=== PATIENT | female | born 1940 | race Caucasian/White ===

== ENCOUNTER 2023-07-14 18:13 | Emergency (ER) | payer OTHER, MEDICAID ==
[~2023-07-14] VITALS: Ht 157.5 cm; Wt 77.1 kg
[2023-07-14 18:25] VITALS: BP_SYST 143; PULSE 79; RESP 18; TEMP 98.3; O2SAT 98
[2023-07-14] MEDS ORDERED: ACETAMINOPHEN 325 MG TABLET PO ONE (19:15)
[2023-07-14] MEDS ORDERED: KETOROLAC TROMETHAMINE 30 MG VIAL IM ONE (20:30)
[2023-07-14] MEDS ORDERED: DICL20GE TP (21:00)
[2023-07-14] MEDS ORDERED: IBUP-1969 PO (21:00)
[2023-07-14 21:11] VITALS: BP_SYST 154; PULSE 89; RESP 20; TEMP 97.7; O2SAT 98
== END 2023-07-14 21:11 | disposition home or self-care (01) ==
LOC: SED 18:13
DX: S00.83XA Contusion of other part of head, initial encounter (principal); Z79.899 Other long term (current) drug therapy; W01.0XXA Fall on same level from slipping, tripping and stumbling without subsequent striking against object, initial encounter; Y93.89 Activity, other specified; Y92.89 Other specified places as the place of occurrence of the external cause; Y99.8 Other external cause status
CPT/HCPCS: 99285; 70450; 73110; 73502; 73564; 70486; 76376; 96372; J1885

== ENCOUNTER 2023-10-22 11:48 | Emergency (ER) | payer OTHER, MEDICAID ==
[~2023-10-22] VITALS: Ht 157.5 cm; Wt 76.2 kg
[~2023-10-22 11:48] MED LIST: DICL20GE TP; IBUP-1969 PO
[2023-10-22 12:38] VITALS: BP_SYST 148; PULSE 80; RESP 17; TEMP 97.8; O2SAT 97
[2023-10-22 14:43] LABS: BILIRUBIN,URINE NEGATIVE (NEGATIVE); COLOR,URINE YELLOW (YELLOW); GLUCOSE,URINE NEGATIVE (NEGATIVE); KETONES,URINE NEGATIVE (NEGATIVE); LEUKOCYTE ESTERASE ,URINE 2+ (NEGATIVE); NITRITE, URINE NEGATIVE (NEGATIVE); PROTEIN URINE 2+ (NEGATIVE); UROBILINOGEN,URINE 0.2 (0.2-1.0)
[2023-10-22 15:13] VITALS: BP_SYST 110
[2023-10-22 15:13] LABS: BLOOD, URINE TRACE (NEGATIVE)
[2023-10-22 15:14] LABS: CLARITY/URINE SLIGHTLY HAZY (CLEAR)
[2023-10-22 15:41] LABS: RBC,URINE 0-3 /HPF (0-3)
[2023-10-22 15:42] LABS: BACTERIA,URINE MODERATE /HPF (None Seen)
[2023-10-22] MEDS ORDERED: LORATADINE 10 MG TABLET PO ONE (18:15)
[2023-10-22] MEDS ORDERED: CEPH250C PO (18:16)
[2023-10-22] MEDS ORDERED: LORA10TA7 PO (18:18)
[2023-10-22 18:30] VITALS: PULSE 78; RESP 17; TEMP 98; O2SAT 97
== END 2023-10-22 18:30 | disposition home or self-care (01) ==
LOC: SED 11:48
DX: N39.0 Urinary tract infection, site not specified (principal); L30.9 Dermatitis, unspecified; L29.9 Pruritus, unspecified; R30.0 Dysuria; E11.9 Type 2 diabetes mellitus without complications; Z79.899 Other long term (current) drug therapy
CPT/HCPCS: 81000; 81001; 81015; 87086; 99283

== ENCOUNTER 2024-03-19 11:48 | Emergency (ER) | payer OTHER, MEDICAID ==
[~2024-03-19] VITALS: Ht 157.5 cm; Wt 74.8 kg
[~2024-03-19 11:48] MED LIST changes: +CEPH250C PO; +LORA10TA7 PO
[2024-03-19 11:51] VITALS: BP_SYST 126; PULSE 74; RESP 20; TEMP 97; O2SAT 98
[2024-03-19 12:49] LABS: BASOPHILS % (AUTO) 0.7 % (0.0-2.0); EOSINOPHILS # (AUTO) 0.4 K/uL (0.0-0.4); EOSINOPHILS % (AUTO) 5.7 % (0.0-4.0); HEMOGLOBIN 11.2 g/dL (12.0-16.0); LYMPHOCYTES # (AUTO) 1.7 K/uL (1.0-5.5); LYMPHOCYTES % (AUTO) 24.3 % (20.5-51.5); MEAN CORPUSCULAR HEMOGLOBIN 29 pg (27-31); MEAN CORPUSCULAR HGB CONC 34 % (32-36); MEAN CORPUSCULAR VOLUME 86 fL (79.0-98.0); MONOCYTES # (AUTO) 0.5 K/uL (0.0-1.0); MONOCYTES % (AUTO) 6.4 % (1.7-9.3); NEUTROPHILS # (AUTO) 4.4 K/uL (1.8-7.7); NEUTROPHILS % (AUTO) 62.9 % (40.0-70.0); PLATELET COUNT (AUTO) 156 K/uL (130-430); RED BLOOD CELL COUNT(AUTO) 3.84 MIL/uL (4.2-6.2); RED CELL DISTRIBUTION WIDTH 14.6 % (9.0-15.0); WHITE BLOOD COUNT (AUTO) 7.1 K/uL (4.8-10.8)
[2024-03-19 13:11] LABS: ALANINE AMINOTRANSFERASE 11 U/L (12-78); ALBUMIN 3.3 g/dL (3.4-4.8); ANION GAP 13 (5-15); ASPARTATE AMINOTRANSFERASE 12 U/L (10-37); CARBON DIOXIDE 22 mmol/L (23-29); CHLORIDE 107 mmol/L (98-107); CREATININE 1.41 mg/dL (0.55-1.30); GLUCOSE 187 mg/dL (74-106); POTASSIUM 4.8 mmol/L (3.5-5.1); SODIUM SERUM 142 mmol/L (136-145); TOTAL BILIRUBIN 0.5 mg/dL (0.0-1.0); TOTAL PROTEIN, SERUM 7.7 g/dL (6.4-8.3); UREA NITROGEN, BLOOD 41 mg/dL (8-21)
[2024-03-19] MEDS ORDERED: CEFU250T85 PO (13:49)
[2024-03-19] MEDS ORDERED: METH-776 PO (13:49)
[2024-03-19 14:18] VITALS: BP_SYST 126; PULSE 74; RESP 20; TEMP 97; O2SAT 98
== END 2024-03-19 14:16 | disposition home or self-care (01) ==
LOC: SED 11:48
DX: J18.9 Pneumonia, unspecified organism (principal); R07.89 Other chest pain; E11.9 Type 2 diabetes mellitus without complications
CPT/HCPCS: 36415; 71046; 80053; 84484; 85025; 85379; 93005; 99285

== ENCOUNTER 2024-03-26 11:26 | Inpatient (IN) | payer OTHER, MEDICAID ==
[~2024-03-26] VITALS: Ht 157.5 cm; Wt 74.8 kg
[~2024-03-26 11:26] MED LIST changes: +CEFU250T85 PO; +METH-776 PO
[2024-03-26 11:44] VITALS: BP_SYST 83; PULSE 68; RESP 18; TEMP 97.4; O2SAT 99
[2024-03-26 12:32] LABS: BASOPHILS % (AUTO) 0.6 % (0.0-2.0); EOSINOPHILS # (AUTO) 0.3 K/uL (0.0-0.4); EOSINOPHILS % (AUTO) 3.2 % (0.0-4.0); HEMATOCRIT 36.3 % (36-48); HEMOGLOBIN 12.1 g/dL (12.0-16.0); LYMPHOCYTES # (AUTO) 2.5 K/uL (1.0-5.5); LYMPHOCYTES % (AUTO) 30.8 % (20.5-51.5); MEAN CORPUSCULAR HEMOGLOBIN 29 pg (27-31); MEAN CORPUSCULAR HGB CONC 34 % (32-36); MEAN CORPUSCULAR VOLUME 87 fL (79.0-98.0); MONOCYTES # (AUTO) 0.5 K/uL (0.0-1.0); MONOCYTES % (AUTO) 6.6 % (1.7-9.3); NEUTROPHILS # (AUTO) 4.9 K/uL (1.8-7.7); NEUTROPHILS % (AUTO) 58.8 % (40.0-70.0); PLATELET COUNT (AUTO) 156 K/uL (130-430); RED BLOOD CELL COUNT(AUTO) 4.19 MIL/uL (4.2-6.2); RED CELL DISTRIBUTION WIDTH 15.5 % (9.0-15.0); WHITE BLOOD COUNT (AUTO) 8.3 K/uL (4.8-10.8)
[2024-03-26 12:54] LABS: ANION GAP 11 (5-15); CALCIUM 8.5 mg/dL (8.4-11.0); CARBON DIOXIDE 22 mmol/L (23-29); CHLORIDE 105 mmol/L (98-107); CREATININE 1.35 mg/dL (0.55-1.30); GLUCOSE 197 mg/dL (74-106); POTASSIUM 4.7 mmol/L (3.5-5.1); SODIUM SERUM 138 mmol/L (136-145); UREA NITROGEN, BLOOD 55 mg/dL (8-21)
[2024-03-26] MEDS ORDERED: ZOLPIDEM TARTRATE 5 MG TABLET PO PRN (13:45)
[2024-03-26] MEDS ORDERED: LORazepam 2 MG/ML VIAL IVP PRN (13:45)
[2024-03-26] MEDS ORDERED: MORPHINE 2 MG/ML INJ. SYRINGE IVP PRN (13:45)
[2024-03-26] MEDS ORDERED: NALOXONE HCL 2 MG/2 ML SYR IVP PRN ×2 (13:45)
[2024-03-26] MEDS ORDERED: ACETAMINOPHEN 500 MG TABLET PO PRN (13:45)
[2024-03-26] MEDS ORDERED: POTASSIUM CHLORIDE 20 MEQ TABLET.ER PO PRN (13:45)
[2024-03-26] MEDS ORDERED: MUPIROCIN 2% TOPICAL OINTMENT 22 GM NS PRN (13:45)
[2024-03-26] MEDS ORDERED: MAGNESIUM SULFATE 50 ML IV PRN (13:45)
[2024-03-26] MEDS ORDERED: DEXTROSE 50% JECT 50 ML DISP.SYRIN IVP PRN (13:45)
[2024-03-26] MEDS ORDERED: DOCUSATE SODIUM 100 MG CAPSULE PO PRN (13:45)
[2024-03-26] MEDS ORDERED: NIFE-34 PO (14:43)
[2024-03-26] MEDS ORDERED: ISOS10TA8 PO (14:43)
[2024-03-26] MEDS ORDERED: SITA100T11 PO (14:43)
[2024-03-26] MEDS ORDERED: ASPI-1393 PO (14:43)
[2024-03-26] MEDS ORDERED: GLIP10TA11 PO (14:43)
[2024-03-26] MEDS: NACL 0.9% 1,000 ML IV SCH (16:05)
[2024-03-26] MEDS: INSULIN LISPRO SLIDING SCALE 100 UNITS/ML, 3 ML VIAL (humaLOG) SUBCUT PRN (17:41)
[2024-03-26] MEDS ORDERED: INSULIN Lispro 100 UNITS/ML, 3 ML VIAL (humaLOG) ONE ×2 (17:42→23:10)
[2024-03-26] MEDS: MORPHINE 2 MG/ML INJ. SYRINGE IVP PRN (21:10)
[2024-03-26] MEDS: ONDANSETRON HCL 4 MG/2 ML VIAL IVP PRN (21:19)
[2024-03-26] MEDS: HEPARIN SODIUM,PORCINE 5,000 UNITS/ML VIAL SUBCUT SCH (22:01)
[2024-03-27] MEDS ORDERED: MORPHINE 2 MG/ML INJ. SYRINGE ONE (04:03)
[2024-03-27 04:52] LABS: BASOPHILS % (AUTO) 0.5 % (0.0-2.0); EOSINOPHILS # (AUTO) 0.3 K/uL (0.0-0.4); EOSINOPHILS % (AUTO) 4.5 % (0.0-4.0); HEMATOCRIT 31.1 % (36-48); HEMOGLOBIN 10.6 g/dL (12.0-16.0); LYMPHOCYTES # (AUTO) 1.6 K/uL (1.0-5.5); LYMPHOCYTES % (AUTO) 24.6 % (20.5-51.5); MEAN CORPUSCULAR HEMOGLOBIN 29 pg (27-31); MEAN CORPUSCULAR HGB CONC 34 % (32-36); MEAN CORPUSCULAR VOLUME 86 fL (79.0-98.0); MONOCYTES # (AUTO) 0.6 K/uL (0.0-1.0); MONOCYTES % (AUTO) 8.6 % (1.7-9.3); NEUTROPHILS # (AUTO) 4.1 K/uL (1.8-7.7); NEUTROPHILS % (AUTO) 61.8 % (40.0-70.0); PLATELET COUNT (AUTO) 125 K/uL (130-430); RED CELL DISTRIBUTION WIDTH 15.4 % (9.0-15.0); WHITE BLOOD COUNT (AUTO) 6.6 K/uL (4.8-10.8)
[2024-03-27 05:30] LABS: ANION GAP 9 (5-15); CALCIUM 7.5 mg/dL (8.4-11.0); CARBON DIOXIDE 22 mmol/L (23-29); CHLORIDE 109 mmol/L (98-107); CREATININE 1.06 mg/dL (0.55-1.30); GLUCOSE 114 mg/dL (74-106); POTASSIUM 5.5 mmol/L (3.5-5.1); SODIUM SERUM 140 mmol/L (136-145); UREA NITROGEN, BLOOD 54 mg/dL (8-21)
[2024-03-27] MEDS: SODIUM POLYSTYRENE SULFONATE 15 GM/60 ML UDBTL PO ONE (09:32)
[2024-03-27 09:37] LABS: INR 1.1 (0.8-1.2); PROTHROMBIN TIME 11.3 SECS (9.5-12.5)
[2024-03-27 11:23] LABS: BILIRUBIN,URINE NEGATIVE (NEGATIVE); BLOOD, URINE NEGATIVE (NEGATIVE); CLARITY/URINE CLEAR (CLEAR); COLOR,URINE YELLOW (YELLOW); GLUCOSE,URINE NEGATIVE (NEGATIVE); KETONES,URINE NEGATIVE (NEGATIVE); LEUKOCYTE ESTERASE ,URINE NEGATIVE (NEGATIVE); NITRITE, URINE NEGATIVE (NEGATIVE); PROTEIN URINE 2+ (NEGATIVE); UROBILINOGEN,URINE 0.2 (0.2-1.0)
[2024-03-27 11:48] LABS: BACTERIA,URINE None Seen /HPF (None Seen); RBC,URINE 0-3 /HPF (0-3); WBC,URINE NONE SEEN /HPF (0-3)
[2024-03-27 11:49] LABS: HYALINE CASTS, URINE 0-2 /LPF (None Seen)
[2024-03-27] MEDS: ACETAMINOPHEN 500 MG TABLET PO PRN (19:21)
[2024-03-27 22:00] VITALS: BP_SYST 148; PULSE 76; RESP 18; TEMP 97.9; O2SAT 100
== END 2024-03-27 23:01 | disposition left against medical advice (07) | DRG 391 ==
LOC: SED 11:26 → STU 13:31
PROVIDERS: ADMIT General Practice; ATTEND General Practice
DX: K21.9 Gastro-esophageal reflux disease without esophagitis (principal); J18.9 Pneumonia, unspecified organism; N17.9 Acute kidney failure, unspecified; J44.0 Chronic obstructive pulmonary disease with (acute) lower respiratory infection; E66.9 Obesity, unspecified; E83.51 Hypocalcemia; E86.0 Dehydration; E87.5 Hyperkalemia; E78.5 Hyperlipidemia, unspecified; E11.22 Type 2 diabetes mellitus with diabetic chronic kidney disease; J40 Bronchitis, not specified as acute or chronic; I12.9 Hypertensive chronic kidney disease with stage 1 through stage 4 chronic kidney disease, or unspecified chronic kidney disease; N18.9 Chronic kidney disease, unspecified; Z79.899 Other long term (current) drug therapy; Z68.30 Body mass index [BMI] 30.0-30.9, adult; S92.919A Unspecified fracture of unspecified toe(s), initial encounter for closed fracture; W18.30XA Fall on same level, unspecified, initial encounter; R26.81 Unsteadiness on feet
CPT/HCPCS: 36415; 71045; 80048; 81000; 81001; 81015; 82948; 83037; 83735; 84484; 85025; 85610; 85730; 93005; 99285; G0378; J1644; J2270; J2405